=== PATIENT | female | born 1945 | race Caucasian/White ===

== ENCOUNTER 2017-11-08 18:37 | Emergency (ER) | payer OTHER ==
[~2017-11-08] VITALS: Ht 165.1 cm; Wt 87.3 kg
[~2017-11-08 18:37] MED LIST: APRESOLINE100 MG PO; ASPIR 8181 M1 PO; CARVEDILOL12.5 MG PO; LAMOTRIGINE100 MG PO; LATANOPROST2.5 ML BOTH EYES; PREDNISONE5 MG PO; VALSARTAN-HCTZ1 EAC3 PO; VITAMIN B-121000 MC1 SL; VITAMIN D2000 UNIT PO
[2017-11-08] MEDS ORDERED: NORCO 5/3251 TABLET PO (23:35)
[2017-11-09 00:04] VITALS: BP 212/62
== END 2017-11-09 00:08 | disposition home or self-care (01) ==
LOC: EME 18:37
DX: S00.83XA Contusion of other part of head, initial encounter (principal); W18.30XA Fall on same level, unspecified, initial encounter; Y93.K1 Activity, walking an animal; I10 Essential (primary) hypertension; G40.909 Epilepsy, unspecified, not intractable, without status epilepticus; G70.00 Myasthenia gravis without (acute) exacerbation; Z87.891 Personal history of nicotine dependence; Z79.82 Long term (current) use of aspirin; Z90.13 Acquired absence of bilateral breasts and nipples; Z85.828 Personal history of other malignant neoplasm of skin; Z85.3 Personal history of malignant neoplasm of breast; Z88.5 Allergy status to narcotic agent; Z88.8 Allergy status to other drugs, medicaments and biological substances
CPT/HCPCS: 70450; 73030; 93005; 99281; 99285; J0360

== ENCOUNTER 2018-01-19 21:40 | Inpatient (IN) | payer OTHER ==
[~2018-01-19] VITALS: Ht 165.1 cm; Wt 89.5 kg
[~2018-01-19 21:40] MED LIST changes: +CELLCEPT500 MG PO; +CHLORTHALIDONE25 MG PO; +CLONIDINE HCL0.1 MG PO; +CLONIDINE HCL0.2 MG PO; +CYANOCOBALAM1000 MCG PO; +LABETALOL HCL200 MG PO; +MICARDIS80 MG PO; +NORCO 5/3251 TABLET PO; +PREDNISONE2.5 MG PO; +VITAMIN B122500 MCG PO
[2018-01-19 23:15] LABS: HEMATOCRIT 28.4 % (36.0-46.0); HEMOGLOBIN 8.9 G/DL (11.9-15.5); MCH 30.2 PG (29.0-34.0); MCHC 31.3 G/DL (30.0-36.0); MCV 96.3 FL (83-99); PLATELET COUNT 169 K/uL (156-360); RBC DIS.WIDTH-CV 14.6 % (11.8-14.6); RBC DIS.WIDTH-SD 50.9 % (39-53); RED BLOOD COUNT 2.95 M/uL (3.80-5.20); WHITE BLOOD COUNT 6.8 K/uL (4.1-10.2)
[2018-01-19 23:27] LABS: CHLORIDE 114 mEq/L (99-109); SODIUM 140 mEq/L (136-147)
[2018-01-19 23:33] LABS: CREATININE 2.2 mg/dL (0.6-1.3); GFR ESTIMATE (CALCULATED) 23 mL/min/
[2018-01-19 23:34] LABS: UREA NITROGEN (BUN) 42 mg/dL (9-23)
[2018-01-19 23:39] LABS: GLUCOSE 111 mg/dL (70-99); POTASSIUM 6.3 mEq/L (3.7-5.4)
[2018-01-19 23:41] LABS: TROP-I INTERPRETATION NEGATIVE; TROPONIN-I 0.02 ng/mL (0.0-0.30)
[2018-01-20] MEDS ORDERED: VITAMIN A8000 UNIT PO (00:28)
[2018-01-20 02:19] LABS: CHLORIDE 113 mEq/L (99-109); SODIUM 142 mEq/L (136-147)
[2018-01-20 02:20] LABS: GLUCOSE 148 mg/dL (70-99)
[2018-01-20 02:24] LABS: CREATININE 2.2 mg/dL (0.6-1.3); GFR ESTIMATE (CALCULATED) 23 mL/min/
[2018-01-20 02:25] LABS: UREA NITROGEN (BUN) 44 mg/dL (9-23)
[2018-01-20 02:30] LABS: POTASSIUM 6.2 mEq/L (3.7-5.4)
[2018-01-20 04:13] VITALS: BP 176/62
[2018-01-20 05:35] LABS: HEMATOCRIT 26.4 % (36.0-46.0); HEMOGLOBIN 8.3 G/DL (11.9-15.5); MCH 30.1 PG (29.0-34.0); MCHC 31.4 G/DL (30.0-36.0); MCV 95.7 FL (83-99); PLATELET COUNT 168 K/uL (156-360); RBC DIS.WIDTH-CV 14.6 % (11.8-14.6); RBC DIS.WIDTH-SD 50.5 % (39-53); RED BLOOD COUNT 2.76 M/uL (3.80-5.20); WHITE BLOOD COUNT 5.9 K/uL (4.1-10.2)
[2018-01-20 05:57] LABS: CHLORIDE 115 MEQ/L (99-109); CREATININE 2.2 MG/DL (0.6-1.3); GFR ESTIMATE (CALCULATED) 23 mL/min/; GLUCOSE 174 mg/dL (70-99); POTASSIUM 5.3 MEQ/L (3.7-5.4); SODIUM 147 MEQ/L (136-147); UREA NITROGEN (BUN) 42 mg/dL (9-23)
[2018-01-20 08:06] VITALS: BP 190/72
[2018-01-20 12:27] VITALS: BP 196/68
[2018-01-20 17:00] LABS: CHLORIDE 112 MEQ/L (99-109); CREATININE 1.9 MG/DL (0.6-1.3); GFR ESTIMATE (CALCULATED) 28 mL/min/; SODIUM 141 MEQ/L (136-147); UREA NITROGEN (BUN) 37 mg/dL (9-23)
[2018-01-20 17:07] LABS: GLUCOSE 111 mg/dL (70-99); POTASSIUM 6.1 MEQ/L (3.7-5.4)
[2018-01-20 17:44] VITALS: BP 210/80
[2018-01-20 21:05] VITALS: BP 240/90
[2018-01-21] VITALS: BP 188/60
[2018-01-21 04:46] VITALS: BP 226/60
[2018-01-21 05:50] LABS: ALBUMIN 3.7 G/DL (3.2-4.8); CHLORIDE 111 MEQ/L (99-109); CREATININE 1.9 MG/DL (0.6-1.3); GFR ESTIMATE (CALCULATED) 28 mL/min/; GLUCOSE 108 mg/dL (70-99); PHOSPHORUS 4.2 mg/dL (2.5-4.9); POTASSIUM 5.3 MEQ/L (3.7-5.4); SODIUM 142 MEQ/L (136-147); UREA NITROGEN (BUN) 38 mg/dL (9-23)
[2018-01-21 07:51] VITALS: BP 204/54
[2018-01-21 10:07] LABS: CHLORIDE 109 MEQ/L (99-109); GFR ESTIMATE (CALCULATED) 26 mL/min/; GLUCOSE 154 mg/dL (70-99); POTASSIUM 4.8 MEQ/L (3.7-5.4); SODIUM 142 MEQ/L (136-147); UREA NITROGEN (BUN) 37 mg/dL (9-23)
[2018-01-21 16:00] VITALS: BP 203/87
[2018-01-21 19:54] VITALS: BP 156/50
[2018-01-21 23:55] VITALS: BP 163/63
[2018-01-22 04:00] VITALS: BP 156/62
[2018-01-22 06:37] LABS: ALBUMIN 3.6 G/DL (3.2-4.8); CHLORIDE 109 MEQ/L (99-109); GFR ESTIMATE (CALCULATED) 19 mL/min/; GFR ESTIMATE (CALCULATED) 20 mL/min/; GLUCOSE 116 mg/dL (70-99); PHOSPHORUS 4.8 mg/dL (2.5-4.9); POTASSIUM 5.3 MEQ/L (3.7-5.4); POTASSIUM 5.4 MEQ/L (3.7-5.4); SODIUM 141 MEQ/L (136-147); UREA NITROGEN (BUN) 48 mg/dL (9-23)
[2018-01-22 06:39] LABS: CREATININE 2.5 MG/DL (0.6-1.3); CREATININE 2.6 MG/DL (0.6-1.3); GLUCOSE 115 mg/dL (70-99)
[2018-01-22 08:05] VITALS: BP 172/110
[2018-01-22 11:29] VITALS: BP 142/80
[2018-01-22 15:46] VITALS: BP 170/74
[2018-01-22 19:05] VITALS: BP 160/72
[2018-01-22 21:23] LABS: APPEARANCE CLEAR ((CLEAR)); BILIRUBIN NEGATIVE; BLOOD NEGATIVE; COLOR YELLOW ((YELLOW)); GLUCOSE (STRIP) NEGATIVE; KETONES NEGATIVE; LEUKOCYTES LARGE; NITRITE NEGATIVE; PROTEIN (STRIP) 100; UROBILINOGEN 0.2 MG/DL (0.2-1.0)
[2018-01-22 21:49] LABS: BACTERIA NONE SEEN /HPF; EPITHELIAL CELLS NONE SEEN /HPF; HYALINE CASTS 0-5 /LPF; MUCUS NONE SEEN /LPF; RED BLOOD CELLS 0-5 /HPF (0-5); UR CREATININE CONCENTRATION 62.9 MG/DL; WHITE BLOOD CELLS TNTC /HPF (0-5)
[2018-01-23 00:47] VITALS: BP 190/60
[2018-01-23 06:45] LABS: ALBUMIN 3.4 G/DL (3.2-4.8); CHLORIDE 110 MEQ/L (99-109); CREATININE 2.5 MG/DL (0.6-1.3); GFR ESTIMATE (CALCULATED) 20 mL/min/; GLUCOSE 105 mg/dL (70-99); PHOSPHORUS 4.5 mg/dL (2.5-4.9); POTASSIUM 5.3 MEQ/L (3.7-5.4); SODIUM 141 MEQ/L (136-147); UREA NITROGEN (BUN) 53 mg/dL (9-23)
[2018-01-23 06:46] LABS: CHLORIDE 112 MEQ/L (99-109); CREATININE 2.5 MG/DL (0.6-1.3); GFR ESTIMATE (CALCULATED) 20 mL/min/; GLUCOSE 110 mg/dL (70-99); POTASSIUM 5.4 MEQ/L (3.7-5.4); SODIUM 145 MEQ/L (136-147); UREA NITROGEN (BUN) 53 mg/dL (9-23)
[2018-01-23 07:03] VITALS: BP 186/74
[2018-01-23 11:07] VITALS: BP 128/58
[2018-01-23 15:32] VITALS: BP 133/62
[2018-01-23 20:15] VITALS: BP 170/74
[2018-01-24] VITALS (8 sets, daily range): BP systolic 146–216; BP diastolic 56–89
[2018-01-24 06:08] LABS: ALBUMIN 3.7 G/DL (3.2-4.8); CHLORIDE 108 MEQ/L (99-109); GFR ESTIMATE (CALCULATED) 15 mL/min/; GLUCOSE 112 mg/dL (70-99); PHOSPHORUS 4.4 mg/dL (2.5-4.9); POTASSIUM 5.1 MEQ/L (3.7-5.4); SODIUM 142 MEQ/L (136-147); UREA NITROGEN (BUN) 73 mg/dL (9-23)
[2018-01-24 06:29] LABS: CREATININE 3.2 MG/DL (0.6-1.3)
[2018-01-24 09:10] LABS: HEMATOCRIT 30.7 % (36.0-46.0); HEMOGLOBIN 9.4 G/DL (11.9-15.5); MCH 29.5 PG (29.0-34.0); MCHC 30.6 G/DL (30.0-36.0); MCV 96.2 FL (83-99); PLATELET COUNT 195 K/uL (156-360); RBC DIS.WIDTH-SD 49.3 % (39-53); RED BLOOD COUNT 3.19 M/uL (3.80-5.20); WHITE BLOOD COUNT 8.1 K/uL (4.1-10.2)
[2018-01-25 03:39] VITALS: BP 178/86
[2018-01-25 05:49] LABS: BASOPHIL (%) 0.1 % (0-1); EOSINOPHIL (%) 0.1 % (0-5); HEMATOCRIT 29.5 % (36.0-46.0); IMMATURE GRANULOCYTE (%) 0.7 % (0.0-0.7); LYMPHOCYTE (%) 11.6 % (15-42); LYMPHOCYTE COUNT 0.8 K/uL (1.0-2.8); MCH 29.1 PG (29.0-34.0); MCHC 30.5 G/DL (30.0-36.0); MCV 95.5 FL (83-99); MONOCYTE (%) 8.3 % (3-12); MONOCYTE COUNT 0.6 K/uL (0-0.8); NEUTROPHIL (%) 79.2 % (45-76); NEUTROPHIL COUNT 5.3 K/uL (1.8-6.4); PLATELET COUNT 183 K/uL (156-360); RBC DIS.WIDTH-CV 13.8 % (11.8-14.6); RBC DIS.WIDTH-SD 47.9 % (39-53); RED BLOOD COUNT 3.09 M/uL (3.80-5.20); WHITE BLOOD COUNT 6.7 K/uL (4.1-10.2)
[2018-01-25 06:19] LABS: ALBUMIN 3.5 G/DL (3.2-4.8); CHLORIDE 109 MEQ/L (99-109); GFR ESTIMATE (CALCULATED) 19 mL/min/; GLUCOSE 114 mg/dL (70-99); PHOSPHORUS 4.5 mg/dL (2.5-4.9); POTASSIUM 4.9 MEQ/L (3.7-5.4); SODIUM 142 MEQ/L (136-147); UREA NITROGEN (BUN) 63 mg/dL (9-23)
[2018-01-25 06:22] LABS: CREATININE 2.6 MG/DL (0.6-1.3)
[2018-01-25 07:51] VITALS: BP 162/80
[2018-01-25 11:55] VITALS: BP 158/84
[2018-01-25 16:37] VITALS: BP 162/78
[2018-01-25 20:06] VITALS: BP 176/56
[2018-01-26 00:26] VITALS: BP 176/62
[2018-01-26 07:21] VITALS: BP 190/88
[2018-01-26 07:28] LABS: ALBUMIN 3.7 G/DL (3.2-4.8); CHLORIDE 109 MEQ/L (99-109); CREATININE 2.4 MG/DL (0.6-1.3); GFR ESTIMATE (CALCULATED) 21 mL/min/; GLUCOSE 112 mg/dL (70-99); PHOSPHORUS 4.3 mg/dL (2.5-4.9); POTASSIUM 4.9 MEQ/L (3.7-5.4); SODIUM 142 MEQ/L (136-147); UREA NITROGEN (BUN) 65 mg/dL (9-23)
[2018-01-26 15:24] VITALS: BP 160/62
[2018-01-26 23:43] VITALS: BP 176/62
[2018-01-27 06:19] LABS: ALBUMIN 3.7 G/DL (3.2-4.8); CHLORIDE 112 MEQ/L (99-109); CREATININE 2.1 MG/DL (0.6-1.3); GFR ESTIMATE (CALCULATED) 25 mL/min/; GLUCOSE 103 mg/dL (70-99); POTASSIUM 5.4 MEQ/L (3.7-5.4); SODIUM 143 MEQ/L (136-147); UREA NITROGEN (BUN) 56 mg/dL (9-23)
[2018-01-27 08:14] VITALS: BP 142/60
[2018-01-27 09:35] VITALS: BP 200/56
[2018-01-27] MEDS ORDERED: NIFEDIPINE ER30 MG PO (13:59)
[2018-01-27] MEDS ORDERED: HYGROTON25 MG PO (13:59)
== END 2018-01-27 16:18 | disposition home or self-care (01) | DRG 641 ==
LOC: EME 21:40 → EDOF 01-20 02:26 → 5SOUTH 01-20 02:26 → ENRESERV 01-20 02:27 → 5SOUTH 01-20 03:48 → ENPENDDIS 01-27 15:30 → 5SOUTH 01-27 16:18
PROVIDERS: Emergency Medicine; Hospitalist; Internal Medicine; Internal Medicine Nephrology; Physician Assistant; Student in an Organized Health Care Education/Training Program
DX: E87.5 Hyperkalemia (principal); I16.0 Hypertensive urgency; N17.9 Acute kidney failure, unspecified; G40.909 Epilepsy, unspecified, not intractable, without status epilepticus; G70.00 Myasthenia gravis without (acute) exacerbation; D63.1 Anemia in chronic kidney disease; Z87.891 Personal history of nicotine dependence; N18.4 Chronic kidney disease, stage 4 (severe); Z85.3 Personal history of malignant neoplasm of breast; Z90.13 Acquired absence of bilateral breasts and nipples; N25.81 Secondary hyperparathyroidism of renal origin; I13.10 Hypertensive heart and chronic kidney disease without heart failure, with stage 1 through stage 4 chronic kidney disease, or unspecified chronic kidney disease; I27.20 Pulmonary hypertension, unspecified; Z66 Do not resuscitate; Z79.82 Long term (current) use of aspirin; F41.9 Anxiety disorder, unspecified; R00.1 Bradycardia, unspecified; T46.5X5A Adverse effect of other antihypertensive drugs, initial encounter
CPT/HCPCS: 36415; 36430; 71045; 76770; 80048; 80048 91; 80069; 81003; 82570; 82948; 83880; 84132 91; 84156; 84484; 85025; 85027; 86850; 86900; 86901; 86920; 86999; 93005; 93306; 93975; 96374; 96375; 99281; 99285; J0360; J1200; J1644; J1815; J1940; J2405; J7512; J7517